=== PATIENT | female | born 1965 | race Caucasian/White ===

== ENCOUNTER 2016-07-12 08:48 | Inpatient (IN) | payer MEDICARE, SELFPAY ==
[~2016-07-12] VITALS: Ht 170.2 cm; Wt 116.8 kg
[~2016-07-12 08:48] MED LIST: CITA20TA9 PO; DIPH50VI12; DIVA500T52 PO; SERAQUIL; SERT100T12; TOPI25 PO
[2016-07-12] MEDS ORDERED: DiphenhydrAMINE HCL 50 MG/ML VIAL IM ONE (09:00)
[2016-07-12] MEDS ORDERED: HALOPERIDOL LACTATE 5 MG/ML VIAL IM ONE (09:00)
[2016-07-12] MEDS ORDERED: LORazepam 2 MG/ML VIAL IM ONE (09:00)
[2016-07-12] MEDS ORDERED: QUET25TA PO (09:06)
[2016-07-12] MEDS ORDERED: GABA-533 PO (09:12)
[2016-07-12] MEDS ORDERED: LITH300C3 PO (09:12)
[2016-07-12] MEDS ORDERED: ARIP15TA3 PO (09:12)
[2016-07-12] MEDS ORDERED: BUPR-93 PO (09:12)
[2016-07-12 09:31] LABS: BASOPHILS % (AUTO) 0.8 % (0.0-2.0); EOSINOPHILS % (AUTO) 3.4 % (1.0-6.0); HEMATOCRIT 43.9 % (36-46); HEMOGLOBIN 14.3 g/dL (12.0-16.0); LYMPHOCYTES # (AUTO) 2.5 K/uL (1.0-4.8); MEAN CORPUSCULAR HEMOGLOBIN 27.9 pg (26.0-34.0); MEAN CORPUSCULAR HGB CONC 32.6 G/dL (31.0-37.0); MEAN CORPUSCULAR VOLUME 86 fL (80-100); MONOCYTES # (AUTO) 0.4 K/uL (0.1-1.0); MONOCYTES % (AUTO) 6.9 % (2.0-9.0); NEUTROPHILS % (AUTO) 48.9 % (40.0-70.0); PLATELET COUNT (AUTO) 327 K/uL (150-450); RED BLOOD CELL COUNT(AUTO) 5.13 MIL/uL (4.00-5.20); RED CELL DISTRIBUTION WIDTH 14.1 % (11.5-14.5); WHITE BLOOD COUNT (AUTO) 6.2 K/uL (4.5-11.0)
[2016-07-12 09:42] LABS: ANION GAP 11 mmol/L (8-16); CALCIUM, TOTAL 8.9 mg/dL (8.8-10.5); CARBON DIOXIDE 26 mmol/L (22-29); CHLORIDE 104 mmol/L (98-107); CREATININE 0.98 mg/dL (0.60-1.30); GLOMERULAR FILTR. RATE CALC 60 mL/min (>60); POTASSIUM 3.7 mmol/L (3.5-5.1); SODIUM SERUM 141 mmol/L (136-145); UREA NITROGEN, BLOOD 12 mg/dL (7-18)
[2016-07-12 09:48] LABS: ALANINE AMINOTRANSFERASE 33 U/L (12-78); ALBUMIN 3.7 g/dL (3.4-5.0); ASPARTATE AMINOTRANSFERASE 23 U/L (15-37); BILIRUBIN,TOTAL 0.4 mg/dL (0.1-1.0); TOTAL PROTEIN, SERUM 7.3 g/dL (6.4-8.2)
[2016-07-12 10:11] LABS: VALPROIC ACID < 3 mcg/mL (50-100)
[2016-07-12] MEDS ORDERED: ZOLPIDEM TARTRATE 10 MG TABLET PO PRN (10:30)
[2016-07-12 10:38] LABS: LITHIUM < 0.20 mmol/L (0.60-1.20)
[2016-07-12 11:43] VITALS: BP 140/99
[2016-07-12] MEDS ORDERED: CloNIDine HCL 0.1 MG TABLET PO PRN (12:15)
[2016-07-12] MEDS ORDERED: ACETAMINOPHEN 325 MG TABLET PO PRN (13:45)
[2016-07-12] MEDS ORDERED: IBUPROFEN 400 MG TABLET PO PRN (13:45)
[2016-07-12] MEDS: NICOTINE 21 MG/24 HOUR PATCH TD SCH (14:07)
[2016-07-12] MEDS: NYSTATIN 30 GM CREAM TP SCH (16:11)
[2016-07-12] MEDS: ARIPiprazole 15 MG TABLET PO SCH (20:01)
[2016-07-13] MEDS: GABAPENTIN 400 MG CAPSULE PO SCH ×3 (09:23→16:06)
[2016-07-13] MEDS: LITHIUM CARBONATE 300 MG CAPSULE PO SCH ×2 (09:23→16:07)
[2016-07-13] MEDS: NICOTINE 21 MG/24 HOUR PATCH TD SCH (09:24)
[2016-07-13] MEDS: BuPROPion HCL XL 150 MG ER TABLET PO SCH (09:24)
[2016-07-13] MEDS: NYSTATIN 30 GM CREAM TP SCH ×2 (09:25→16:06)
[2016-07-13 15:51] LABS: APPEARANCE,URINE CLEAR (CLEAR); GLUCOSE, URINE (UA) NEGATIVE (NEGATIVE); KETONES,URINE NEGATIVE (NEGATIVE); LEUKOCYTE ESTERASE ,URINE NEGATIVE (NEGATIVE); OCCULT BLOOD,URINE NEGATIVE (NEGATIVE); PROTEIN,URINE NEGATIVE (NEGATIVE)
[2016-07-13 15:55] LABS: ADD UA MICROSCOPIC NO
[2016-07-13] MEDS ORDERED: NYST15CR2 TP (16:08)
[2016-07-13] MEDS: ARIPiprazole 15 MG TABLET PO SCH (20:31)
[2016-07-14 05:00] VITALS: BP 136/83
[2016-07-14 08:04] VITALS: BP 133/81
[2016-07-14] MEDS: BuPROPion HCL XL 150 MG ER TABLET PO SCH (08:30)
[2016-07-14] MEDS: LORazepam 2 MG TABLET PO PRN (08:30)
[2016-07-14] MEDS: GABAPENTIN 400 MG CAPSULE PO SCH ×3 (08:30→16:52)
[2016-07-14] MEDS: LITHIUM CARBONATE 300 MG CAPSULE PO SCH ×2 (08:30→16:51)
[2016-07-14] MEDS: NICOTINE 21 MG/24 HOUR PATCH TD SCH (08:31)
[2016-07-14] MEDS: NYSTATIN 30 GM CREAM TP SCH ×2 (08:32→16:52)
[2016-07-14] MEDS: HALOPERIDOL 5 MG TABLET PO PRN (09:57)
[2016-07-14] MEDS ORDERED: MAG HYDROX/AL HYDROX/SIMETH 30 ML SUSP UDCUP PO PRN (14:15)
[2016-07-14 19:42] VITALS: BP 134/82
[2016-07-14] MEDS: ARIPiprazole 15 MG TABLET PO SCH (20:31)
[2016-07-15] MEDS: NYSTATIN 30 GM CREAM TP SCH ×2 (09:00→16:12)
[2016-07-15] MEDS: NICOTINE 21 MG/24 HOUR PATCH TD SCH (09:00)
[2016-07-15] MEDS: LITHIUM CARBONATE 300 MG CAPSULE PO SCH ×2 (09:03→16:12)
[2016-07-15] MEDS: BuPROPion HCL XL 150 MG ER TABLET PO SCH (09:03)
[2016-07-15] MEDS: GABAPENTIN 400 MG CAPSULE PO SCH ×3 (09:03→16:12)
[2016-07-15] MEDS: LORazepam 2 MG TABLET PO PRN (09:04)
[2016-07-15] MEDS: HALOPERIDOL 5 MG TABLET PO PRN (09:04)
[2016-07-15 16:47] VITALS: BP 113/75
[2016-07-15] MEDS: ARIPiprazole 15 MG TABLET PO SCH (20:04)
[2016-07-16] MEDS: LORazepam 2 MG TABLET PO PRN (08:20)
[2016-07-16] MEDS: HALOPERIDOL 5 MG TABLET PO PRN (08:21)
[2016-07-16] MEDS: GABAPENTIN 400 MG CAPSULE PO SCH ×3 (08:21→17:44)
[2016-07-16] MEDS: BuPROPion HCL XL 150 MG ER TABLET PO SCH (08:21)
[2016-07-16] MEDS: LITHIUM CARBONATE 300 MG CAPSULE PO SCH ×2 (08:21→17:44)
[2016-07-16] MEDS: NICOTINE 21 MG/24 HOUR PATCH TD SCH (08:22)
[2016-07-16 08:49] VITALS: BP 128/75
[2016-07-16] MEDS: NYSTATIN 30 GM CREAM TP SCH ×2 (09:00→17:45)
[2016-07-16 17:00] VITALS: BP 114/63
[2016-07-16] MEDS: ARIPiprazole 15 MG TABLET PO SCH (20:01)
[2016-07-17 08:00] VITALS: BP 127/75
[2016-07-17] MEDS: NYSTATIN 30 GM CREAM TP SCH ×2 (09:00→16:03)
[2016-07-17] MEDS: NICOTINE 21 MG/24 HOUR PATCH TD SCH (09:30)
[2016-07-17] MEDS: BuPROPion HCL XL 150 MG ER TABLET PO SCH (09:30)
[2016-07-17] MEDS: GABAPENTIN 400 MG CAPSULE PO SCH ×3 (09:30→16:02)
[2016-07-17] MEDS: LITHIUM CARBONATE 300 MG CAPSULE PO SCH ×2 (09:30→16:02)
[2016-07-17] MEDS: LORazepam 2 MG TABLET PO PRN (12:50)
[2016-07-17 16:54] VITALS: BP 152/96
[2016-07-17] MEDS: ARIPiprazole 15 MG TABLET PO SCH (21:14)
[2016-07-18 08:00] VITALS: BP 140/82
[2016-07-18] MEDS: NICOTINE 21 MG/24 HOUR PATCH TD SCH (09:00)
[2016-07-18] MEDS: NYSTATIN 30 GM CREAM TP SCH ×2 (09:00→16:44)
[2016-07-18] MEDS: LORazepam 2 MG TABLET PO PRN ×2 (09:15→16:44)
[2016-07-18] MEDS: LITHIUM CARBONATE 300 MG CAPSULE PO SCH ×2 (09:15→16:44)
[2016-07-18] MEDS: GABAPENTIN 400 MG CAPSULE PO SCH ×3 (09:15→16:45)
[2016-07-18] MEDS: BuPROPion HCL XL 150 MG ER TABLET PO SCH (09:15)
[2016-07-18] MEDS: HALOPERIDOL 5 MG TABLET PO PRN (09:16)
[2016-07-18 16:45] VITALS: BP 138/70
[2016-07-18] MEDS: ARIPiprazole 15 MG TABLET PO SCH (20:28)
[2016-07-19 08:00] VITALS: BP 134/84
[2016-07-19] MEDS: LITHIUM CARBONATE 300 MG CAPSULE PO SCH (08:59)
[2016-07-19] MEDS: BuPROPion HCL XL 150 MG ER TABLET PO SCH (09:00)
[2016-07-19] MEDS: NICOTINE 21 MG/24 HOUR PATCH TD SCH (09:00)
[2016-07-19] MEDS: NYSTATIN 30 GM CREAM TP SCH (09:00)
[2016-07-19] MEDS: GABAPENTIN 400 MG CAPSULE PO SCH ×2 (09:00→12:36)
[2016-07-19] MEDS: LORazepam 2 MG TABLET PO PRN (09:26)
== END 2016-07-19 14:00 | disposition home or self-care (01) | DRG 885 ==
LOC: EMS 08:50 → 3EC 10:13 → 3EI 07-14 16:00
PROVIDERS: ADMIT Psychiatry & Neurology Psychiatry; ATTEND Psychiatry & Neurology Psychiatry
DX: F20.0 Paranoid schizophrenia (principal); F25.9 Schizoaffective disorder, unspecified; G89.29 Other chronic pain; F15.10 Other stimulant abuse, uncomplicated; F17.210 Nicotine dependence, cigarettes, uncomplicated; F12.10 Cannabis abuse, uncomplicated; Z71.51 Drug abuse counseling and surveillance of drug abuser; Z79.899 Other long term (current) drug therapy
CPT/HCPCS: 80307; 96372; 99285; G0480; J1200; J1630; J2060

== ENCOUNTER 2016-08-18 17:25 | Inpatient (IN) | payer MEDICARE ==
[~2016-08-18] VITALS: Ht 167.6 cm; Wt 107.5 kg
[~2016-08-18 17:25] MED LIST changes: +ARIP15TA3 PO; +BUPR-93 PO; -CITA20TA9 PO; -DIPH50VI12; -DIVA500T52 PO; +GABA-533 PO; +LITH300C3 PO; -SERAQUIL; -SERT100T12; -TOPI25 PO
[2016-08-18 19:35] LABS: BASOPHILS % (AUTO) 0.5 % (0.0-2.0); EOSINOPHILS % (AUTO) 3.2 % (1.0-6.0); HEMATOCRIT 40.5 % (36-46); HEMOGLOBIN 13.2 g/dL (12.0-16.0); LYMPHOCYTES # (AUTO) 1.7 K/uL (1.0-4.8); LYMPHOCYTES % (AUTO) 22.8 % (22.0-44.0); MEAN CORPUSCULAR HEMOGLOBIN 27.4 pg (26.0-34.0); MEAN CORPUSCULAR HGB CONC 32.5 G/dL (31.0-37.0); MEAN CORPUSCULAR VOLUME 84 fL (80-100); MONOCYTES # (AUTO) 0.4 K/uL (0.1-1.0); MONOCYTES % (AUTO) 5.8 % (2.0-9.0); NEUTROPHILS # (AUTO) 5.1 K/uL (1.8-7.7); NEUTROPHILS % (AUTO) 67.7 % (40.0-70.0); PLATELET COUNT (AUTO) 253 K/uL (150-450); RED CELL DISTRIBUTION WIDTH 14.3 % (11.5-14.5); WHITE BLOOD COUNT (AUTO) 7.5 K/uL (4.5-11.0)
[2016-08-18 19:59] LABS: ANION GAP 8 mmol/L (8-16); CALCIUM, TOTAL 9.4 mg/dL (8.8-10.5); CARBON DIOXIDE 27 mmol/L (22-29); CHLORIDE 102 mmol/L (98-107); CREATININE 0.93 mg/dL (0.60-1.30); GLOMERULAR FILTR. RATE CALC > 60 mL/min (>60); POTASSIUM 4.1 mmol/L (3.5-5.1); SODIUM SERUM 137 mmol/L (136-145); UREA NITROGEN, BLOOD 11 mg/dL (7-18)
[2016-08-18 20:05] LABS: ALANINE AMINOTRANSFERASE 37 U/L (12-78); ALBUMIN 3.8 g/dL (3.4-5.0); ASPARTATE AMINOTRANSFERASE 23 U/L (15-37); BILIRUBIN,TOTAL 0.9 mg/dL (0.1-1.0); TOTAL PROTEIN, SERUM 7.5 g/dL (6.4-8.2)
[2016-08-18] MEDS ORDERED: LORazepam 2 MG TABLET PO ONE (21:15)
[2016-08-18] MEDS ORDERED: HALOPERIDOL 5 MG TABLET PO ONE (21:15)
[2016-08-18] MEDS ORDERED: ZOLPIDEM TARTRATE 10 MG TABLET PO PRN (21:30)
[2016-08-19] MEDS ORDERED: ACETAMINOPHEN 325 MG TABLET PO PRN (10:00)
[2016-08-19] MEDS ORDERED: IBUPROFEN 400 MG TABLET PO PRN (10:00)
[2016-08-19] MEDS: GABAPENTIN 400 MG CAPSULE PO SCH ×2 (13:41→16:52)
[2016-08-19] MEDS: HALOPERIDOL 5 MG TABLET PO PRN (16:52)
[2016-08-19] MEDS: LITHIUM CARBONATE 300 MG CAPSULE PO SCH (16:52)
[2016-08-19] MEDS: LORazepam 2 MG TABLET PO PRN (16:52)
[2016-08-19] MEDS: ARIPiprazole 15 MG TABLET PO SCH (21:31)
[2016-08-20 06:10] VITALS: BP 120/93
[2016-08-20] MEDS: LITHIUM CARBONATE 300 MG CAPSULE PO SCH ×2 (09:57→16:41)
[2016-08-20] MEDS: FOLIC ACID 1 MG TABLET PO SCH (09:57)
[2016-08-20] MEDS: GABAPENTIN 400 MG CAPSULE PO SCH ×3 (09:57→16:41)
[2016-08-20] MEDS: THIAMINE HCL 100 MG TABLET PO SCH (09:57)
[2016-08-20] MEDS: BuPROPion HCL XL 150 MG ER TABLET PO SCH (09:58)
[2016-08-20] MEDS: LORazepam 2 MG TABLET PO PRN ×2 (09:58→16:41)
[2016-08-20] MEDS: HALOPERIDOL 5 MG TABLET PO PRN (16:41)
[2016-08-20] MEDS: ARIPiprazole 15 MG TABLET PO SCH (20:14)
[2016-08-21 07:00] VITALS: BP 130/88
[2016-08-21] MEDS: GABAPENTIN 400 MG CAPSULE PO SCH ×2 (08:52→12:33)
[2016-08-21] MEDS: THIAMINE HCL 100 MG TABLET PO SCH (08:52)
[2016-08-21] MEDS: FOLIC ACID 1 MG TABLET PO SCH (08:52)
[2016-08-21] MEDS: BuPROPion HCL XL 150 MG ER TABLET PO SCH (08:52)
[2016-08-21] MEDS: LITHIUM CARBONATE 300 MG CAPSULE PO SCH (08:52)
== END 2016-08-21 16:00 | disposition home or self-care (01) | DRG 885 ==
LOC: EMS 17:28 → B3A 21:12
PROVIDERS: ADMIT Psychiatry & Neurology Psychiatry; ATTEND Psychiatry & Neurology Psychiatry
DX: F25.9 Schizoaffective disorder, unspecified (principal); F31.9 Bipolar disorder, unspecified; G35 Multiple sclerosis; G89.29 Other chronic pain; F17.210 Nicotine dependence, cigarettes, uncomplicated; F99 Mental disorder, not otherwise specified; F19.10 Other psychoactive substance abuse, uncomplicated; F15.10 Other stimulant abuse, uncomplicated; F12.10 Cannabis abuse, uncomplicated; Z71.51 Drug abuse counseling and surveillance of drug abuser; Z59.0 Homelessness; Z71.6 Tobacco abuse counseling; Z79.899 Other long term (current) drug therapy
CPT/HCPCS: 83036; 87081; 99285; G0480

== ENCOUNTER 2020-09-03 11:52 | Emergency (ER) | payer MEDICARE, MEDICAID ==
[~2020-09-03] VITALS: Ht 162.6 cm; Wt 77.3 kg
[2020-09-03] MEDS ORDERED: OLAN10TA3 PO (12:15)
[2020-09-03] MEDS ORDERED: ARIP10TA38 PO (12:15)
[2020-09-03] MEDS ORDERED: QUET100T PO (12:15)
[2020-09-03 13:52] LABS: BASOPHILS % (AUTO) 0.9 % (0.0-2.0); EOSINOPHILS % (AUTO) 3.5 % (1.0-6.0); HEMATOCRIT 41.5 % (36-46); HEMOGLOBIN 13.7 g/dL (12.0-16.0); LYMPHOCYTES # (AUTO) 2.2 K/uL (1.0-4.8); LYMPHOCYTES % (AUTO) 32.1 % (22.0-44.0); MEAN CORPUSCULAR HGB CONC 33.1 G/dL (31.0-37.0); MEAN CORPUSCULAR VOLUME 85 fL (80-100); MONOCYTES # (AUTO) 0.5 K/uL (0.1-1.0); MONOCYTES % (AUTO) 6.9 % (2.0-9.0); NEUTROPHILS % (AUTO) 56.6 % (40.0-70.0); PLATELET COUNT (AUTO) 243 K/uL (150-450); RED BLOOD CELL COUNT(AUTO) 4.91 MIL/uL (4.00-5.20)
[2020-09-03 14:20] LABS: ANION GAP 8 mmol/L (8-16); CALCIUM, TOTAL 9.2 mg/dL (8.8-10.5); CARBON DIOXIDE 29 mmol/L (22-29); CHLORIDE 106 mmol/L (98-107); CREATININE 1.14 mg/dL (0.60-1.30); GLOMERULAR FILTR. RATE CALC 50 mL/min (>60); GLUCOSE,RANDOM 62 mg/dL (70-110); POTASSIUM 4.2 mmol/L (3.5-5.1); SODIUM SERUM 143 mmol/L (136-145); UREA NITROGEN, BLOOD 16 mg/dL (7-18)
[2020-09-03 14:26] LABS: ALANINE AMINOTRANSFERASE 20 U/L (12-78); ALBUMIN 3.6 g/dL (3.4-5.0); ALKALINE PHOSPHATASE 113 U/L (46-116); ASPARTATE AMINOTRANSFERASE 16 U/L (15-37); BILIRUBIN,TOTAL 0.3 mg/dL (0.1-1.0); TOTAL PROTEIN, SERUM 7.2 g/dL (6.4-8.2)
[2020-09-03 14:50] VITALS: BP 144/76
== END 2020-09-03 17:08 | disposition home or self-care (01) ==
LOC: EDUNIT# 11:52 → EMS 12:03
DX: F31.9 Bipolar disorder, unspecified (principal); F17.210 Nicotine dependence, cigarettes, uncomplicated; F11.90 Opioid use, unspecified, uncomplicated; F12.90 Cannabis use, unspecified, uncomplicated; F19.90 Other psychoactive substance use, unspecified, uncomplicated
CPT/HCPCS: 36415; 80053; 85025; 99284; G0480; 82962

== ENCOUNTER 2020-09-08 11:28 | Inpatient (IN) | payer MEDICARE, MEDICAID ==
[~2020-09-08] VITALS: Ht 167.6 cm; Wt 96.9 kg
[2020-09-08 10:45] VITALS: BP 147/95
[~2020-09-08 11:28] MED LIST changes: +ARIP10TA38 PO; -ARIP15TA3 PO; -BUPR-93 PO; -GABA-533 PO; -LITH300C3 PO; +OLAN10TA3 PO; +QUET100T PO
[2020-09-08] MEDS ORDERED: DiphenhydrAMINE HCL 50 MG/ML VIAL IM ONE (12:15)
[2020-09-08] MEDS ORDERED: LORazepam 2 MG/ML VIAL IM ONE (12:15)
[2020-09-08] MEDS ORDERED: HALOPERIDOL LACTATE 5 MG/ML VIAL IM ONE (12:15)
[2020-09-08 13:22] LABS: COVID AG,FIA SOURCE NASOPHARYNGEAL
[2020-09-08] MEDS ORDERED: LORazepam 2 MG TABLET PO PRN (19:15)
[2020-09-08] MEDS ORDERED: HALOPERIDOL 5 MG TABLET PO PRN (19:15)
[2020-09-08] MEDS ORDERED: ZOLPIDEM TARTRATE 10 MG TABLET PO PRN (19:15)
[2020-09-09 01:18] VITALS: BP 132/60
[2020-09-09] MEDS ORDERED: ACETAMINOPHEN 325 MG TABLET PO PRN (07:15)
[2020-09-09] MEDS ORDERED: DOCUSATE SODIUM 100 MG CAPSULE PO PRN (07:15)
[2020-09-09] MEDS ORDERED: LOPERAMIDE HCL 2 MG CAPSULE PO PRN (07:15)
[2020-09-09] MEDS ORDERED: ONDANSETRON HCL 4 MG TABLET PO PRN (07:15)
[2020-09-09] MEDS ORDERED: IBUPROFEN 600 MG TABLET PO PRN (07:15)
[2020-09-09] MEDS ORDERED: ALBUTEROL SULFATE HFA 90 MCG/PUFF 8 GM INHALER IH PRN (07:15)
[2020-09-09] MEDS ORDERED: MAGNESIUM HYDROXIDE SUSPENSION 30 ML UDCUP PO PRN (07:15)
[2020-09-09] MEDS ORDERED: PETROLATUM,WHITE 28 GM JELLY TP PRN (07:15)
[2020-09-09] MEDS ORDERED: BENZOCAINE/MENTHOL LOZENGE PO PRN (07:15)
[2020-09-09] MEDS ORDERED: OMEPRAZOLE 20 MG CAPSULE PO PRN (07:15)
[2020-09-09] MEDS ORDERED: MAG HYDROX/AL HYDROX/SIMETH ES 30 ML SUSPENSION UDCUP PO PRN (07:15)
[2020-09-09] MEDS ORDERED: BACITRACIN 28 GM OINTMENT TP PRN (07:15)
[2020-09-09] MEDS ORDERED: CloNIDine HCL 0.1 MG TABLET PO PRN (07:15)
[2020-09-09] MEDS: AmLODIPine BESYLATE 5 MG TABLET PO SCH (09:08)
[2020-09-09] MEDS: ARIPiprazole 10 MG TABLET PO SCH (10:30)
[2020-09-09] MEDS: QUEtiapine FUMARATE 300 MG TABLET PO SCH (21:52)
[2020-09-10 02:20] VITALS: BP 127/68
[2020-09-10] MEDS: ARIPiprazole 10 MG TABLET PO SCH (09:08)
[2020-09-10] MEDS: AmLODIPine BESYLATE 5 MG TABLET PO SCH (09:08)
[2020-09-10 09:10] VITALS: BP 124/82
[2020-09-10 16:15] VITALS: BP 109/72
[2020-09-10] MEDS: QUEtiapine FUMARATE 300 MG TABLET PO SCH (20:18)
[2020-09-11 00:45] VITALS: BP 114/76
[2020-09-11 08:14] VITALS: BP 121/65
[2020-09-11] MEDS: ARIPiprazole 10 MG TABLET PO SCH (10:12)
[2020-09-11] MEDS: AmLODIPine BESYLATE 5 MG TABLET PO SCH (10:12)
[2020-09-11] MEDS ORDERED: ARIP10TA38 PO (12:44)
[2020-09-11] MEDS ORDERED: QUET300T2 PO (12:44)
[2020-09-11] MEDS ORDERED: AMLO-257 PO (12:44)
== END 2020-09-11 16:00 | disposition home or self-care (01) | DRG 885 ==
LOC: EMS 11:32 → B3A 19:00
PROVIDERS: ADMIT Psychiatry & Neurology Psychiatry; ATTEND Psychiatry & Neurology Psychiatry
DX: F25.9 Schizoaffective disorder, unspecified (principal); F31.9 Bipolar disorder, unspecified; I10 Essential (primary) hypertension; Z20.822 Contact with and (suspected) exposure to COVID-19; F41.9 Anxiety disorder, unspecified; Z87.891 Personal history of nicotine dependence; K59.00 Constipation, unspecified; G47.00 Insomnia, unspecified
CPT/HCPCS: 87426; 99285; J1200; J1630; J2060

== ENCOUNTER 2020-09-09 17:47 | Emergency (ER) | payer MEDICARE, MEDICAID ==
[~2020-09-09] VITALS: Ht 167.6 cm; Wt 100.0 kg
[2020-09-09 17:59] VITALS: BP 102/69
== END 2020-09-09 19:07 | disposition home or self-care (01) ==
LOC: EMS 17:47
DX: S60.444A External constriction of right ring finger, initial encounter (principal); F31.9 Bipolar disorder, unspecified; F17.210 Nicotine dependence, cigarettes, uncomplicated; F11.90 Opioid use, unspecified, uncomplicated; F12.90 Cannabis use, unspecified, uncomplicated; W49.04XA Ring or other jewelry causing external constriction, initial encounter; Y93.89 Activity, other specified; Y92.89 Other specified places as the place of occurrence of the external cause; Y99.8 Other external cause status
CPT/HCPCS: 99284; 99285; Z7502

== ENCOUNTER 2021-12-12 18:55 | Inpatient (IN) | payer MEDICARE, MEDICAID ==
[~2021-12-12] VITALS: Ht 167.6 cm; Wt 89.0 kg
[~2021-12-12 18:55] MED LIST changes: +AMLO-257 PO; -OLAN10TA3 PO; -QUET100T PO; +QUET300T2 PO
[2021-12-12] MEDS ORDERED: ZIPR40CA38 PO (19:39)
[2021-12-12] MEDS ORDERED: OLAN20TA35 PO (19:39)
[2021-12-12] MEDS ORDERED: LITH300C3 PO (19:39)
[2021-12-12] MEDS ORDERED: PROP10TA72 PO (19:39)
[2021-12-12] MEDS ORDERED: GABA-1181 PO (19:39)
[2021-12-12] MEDS ORDERED: ZOLPIDEM TARTRATE 10 MG TABLET PO PRN (20:00)
[2021-12-12] MEDS ORDERED: QUEtiapine FUMARATE 100 MG TABLET PO PRN (20:00)
[2021-12-12] MEDS ORDERED: LORazepam 2 MG TABLET PO PRN (20:00)
[2021-12-12] MEDS ORDERED: HALOPERIDOL LACTATE 5 MG/ML VIAL IM ONE (20:30)
[2021-12-12] MEDS ORDERED: DIAZEPAM 5 MG/ML 2 ML SYRINGE IM ONE (20:30)
[2021-12-12] MEDS ORDERED: DiphenhydrAMINE HCL 50 MG/ML VIAL IM ONE (20:30)
[2021-12-12 21:04] LABS: COVID AG,FIA SOURCE NASOPHARYNGEAL
[2021-12-12 22:37] LABS: BASOPHILS % (AUTO) 0.9 % (0.0-2.0); EOSINOPHILS % (AUTO) 4.7 % (1.0-6.0); HEMATOCRIT 34.9 % (36-46); HEMOGLOBIN 11.7 g/dL (12.0-16.0); LYMPHOCYTES # (AUTO) 1.6 K/uL (1.0-4.8); LYMPHOCYTES % (AUTO) 28.6 % (22.0-44.0); MEAN CORPUSCULAR HEMOGLOBIN 29.1 pg (26.0-34.0); MEAN CORPUSCULAR HGB CONC 33.4 G/dL (31.0-37.0); MEAN CORPUSCULAR VOLUME 87 fL (80-100); MONOCYTES # (AUTO) 0.6 K/uL (0.1-1.0); NEUTROPHILS # (AUTO) 3.2 K/uL (1.8-7.7); NEUTROPHILS % (AUTO) 55.8 % (40.0-70.0); PLATELET COUNT (AUTO) 232 K/uL (150-450); RED BLOOD CELL COUNT(AUTO) 4.01 MIL/uL (4.00-5.20); RED CELL DISTRIBUTION WIDTH 15.2 % (11.5-14.5)
[2021-12-12 22:42] LABS: ANION GAP 6 mmol/L (8-16); CARBON DIOXIDE 27 mmol/L (22-29); CHLORIDE 106 mmol/L (98-107); GLOMERULAR FILTR. RATE CALC 58 mL/min (>60); GLUCOSE,RANDOM 84 mg/dL (70-110); POTASSIUM 3.8 mmol/L (3.5-5.1); SODIUM SERUM 139 mmol/L (136-145)
[2021-12-12 22:57] LABS: ALANINE AMINOTRANSFERASE 24 U/L (12-78); ALBUMIN 3.1 g/dL (3.4-5.0); ALKALINE PHOSPHATASE 72 U/L (46-116); ASPARTATE AMINOTRANSFERASE 19 U/L (15-37); BILIRUBIN,TOTAL 0.6 mg/dL (0.1-1.0); TOTAL PROTEIN, SERUM 6.1 g/dL (6.4-8.2); UREA NITROGEN, BLOOD 23 mg/dL (7-18)
[2021-12-13] MEDS ORDERED: HALOPERIDOL LACTATE 5 MG/ML VIAL IM ONE (10:00)
[2021-12-13] MEDS ORDERED: DiphenhydrAMINE HCL 50 MG/ML VIAL IM ONE (10:00)
[2021-12-13] MEDS ORDERED: DIAZEPAM 5 MG/ML 2 ML SYRINGE IM ONE (10:00)
[2021-12-13 10:47] VITALS: BP 133/88
[2021-12-14 09:53] VITALS: BP 129/90
[2021-12-14 16:33] VITALS: BP 110/64
[2021-12-14 16:34] VITALS: BP 110/64
[2021-12-14] MEDS: DiphenhydrAMINE HCL 25 MG CAPSULE PO SCH (20:58)
[2021-12-14] MEDS: OLANZapine 5 MG RAPDIS TABLET PO SCH (20:59)
[2021-12-15 08:30] VITALS: BP 132/78
[2021-12-15] MEDS: OLANZapine 5 MG RAPDIS TABLET PO SCH ×3 (08:53→20:14)
[2021-12-15] MEDS: DIVALPROEX SODIUM 500 MG DR TABLET PO SCH ×4 (08:53→17:00)
[2021-12-15] MEDS ORDERED: MAGNESIUM HYDROXIDE SUSPENSION 30 ML UDCUP PO PRN (10:30)
[2021-12-15] MEDS ORDERED: ACETAMINOPHEN 325 MG TABLET PO PRN (10:30)
[2021-12-15] MEDS ORDERED: MAG HYDROX/AL HYDROX/SIMETH ES 30 ML SUSPENSION UDCUP PO PRN (10:30)
[2021-12-15] MEDS ORDERED: GuaiFENesin/D-METHORPHAN [SUGAR-FREE] 200-20MG/10 ML SYRUP UDCUP PO PRN (16:45)
[2021-12-15] MEDS ORDERED: PROMETHAZINE HCL 25 MG TABLET PO PRN (16:45)
[2021-12-15] MEDS ORDERED: HydrOXYzine PAMOATE 50 MG CAPSULE PO PRN (16:45)
[2021-12-15] MEDS ORDERED: TUBERCULIN, PURIFIED PROTEIN DERIVATIVE 5 TU/0.1 ML SYRINGE ID ONE (16:45)
[2021-12-15] MEDS ORDERED: LOPERAMIDE HCL 2 MG CAPSULE PO PRN (16:45)
[2021-12-15] MEDS ORDERED: OLANZapine 5 MG RAPDIS TABLET PO PRN (16:45)
[2021-12-15 16:48] VITALS: BP 119/80
[2021-12-15] MEDS: THIAMINE 100 MG TABLET PO SCH ×2 (17:00→18:01)
[2021-12-15] MEDS: DiphenhydrAMINE HCL 25 MG CAPSULE PO SCH (20:14)
[2021-12-16 07:45] LABS: HEMOGLOBIN A1C 4.7 % (3.8-5.6)
[2021-12-16 08:33] VITALS: BP 120/77
[2021-12-16] MEDS: DIVALPROEX SODIUM 500 MG DR TABLET PO SCH ×3 (08:50→16:40)
[2021-12-16] MEDS: OLANZapine 5 MG RAPDIS TABLET PO SCH ×2 (08:50→20:54)
[2021-12-16] MEDS: THIAMINE 100 MG TABLET PO SCH ×2 (09:00→16:40)
[2021-12-16] MEDS: MULTIVITAMINS WITH MINERALS, THERAPEUTIC TABLET PO SCH (09:00)
[2021-12-16] MEDS: FOLIC ACID 1 MG TABLET PO SCH (09:00)
[2021-12-16 16:17] VITALS: BP 119/77
[2021-12-16] MEDS ORDERED: PALIPERIDONE PALMITATE 234 MG/1.5 ML SYRINGE IM ONE (18:00)
[2021-12-16] MEDS: DiphenhydrAMINE HCL 25 MG CAPSULE PO SCH (20:52)
[2021-12-17] MEDS: DIVALPROEX SODIUM 500 MG DR TABLET PO SCH ×3 (09:00→17:26)
[2021-12-17] MEDS: OLANZapine 5 MG RAPDIS TABLET PO SCH ×2 (09:00→20:26)
[2021-12-17] MEDS: MULTIVITAMINS WITH MINERALS, THERAPEUTIC TABLET PO SCH (09:00)
[2021-12-17] MEDS: THIAMINE 100 MG TABLET PO SCH ×2 (09:00→17:29)
[2021-12-17] MEDS: FOLIC ACID 1 MG TABLET PO SCH (09:00)
[2021-12-17 16:00] VITALS: BP 117/77
[2021-12-17] MEDS: DiphenhydrAMINE HCL 25 MG CAPSULE PO SCH (20:26)
[2021-12-18] MEDS: DIVALPROEX SODIUM 500 MG DR TABLET PO SCH ×4 (07:51→16:47)
[2021-12-18] MEDS: FOLIC ACID 1 MG TABLET PO SCH (07:51)
[2021-12-18] MEDS: MULTIVITAMINS WITH MINERALS, THERAPEUTIC TABLET PO SCH (07:51)
[2021-12-18] MEDS: THIAMINE 100 MG TABLET PO SCH ×2 (07:52→16:47)
[2021-12-18] MEDS: OLANZapine 5 MG RAPDIS TABLET PO SCH ×2 (07:53→20:07)
[2021-12-18 16:13] VITALS: BP 141/90
[2021-12-18] MEDS: DiphenhydrAMINE HCL 25 MG CAPSULE PO SCH (20:08)
[2021-12-19 08:05] VITALS: BP 98/62
[2021-12-19] MEDS: THIAMINE 100 MG TABLET PO SCH ×2 (08:36→16:06)
[2021-12-19] MEDS: MULTIVITAMINS WITH MINERALS, THERAPEUTIC TABLET PO SCH (08:36)
[2021-12-19] MEDS: DIVALPROEX SODIUM 500 MG DR TABLET PO SCH ×3 (08:37→16:06)
[2021-12-19] MEDS: FOLIC ACID 1 MG TABLET PO SCH (08:37)
[2021-12-19] MEDS: OLANZapine 5 MG RAPDIS TABLET PO SCH ×2 (08:38→20:05)
[2021-12-19 16:03] VITALS: BP 111/70
[2021-12-19] MEDS: DiphenhydrAMINE HCL 25 MG CAPSULE PO SCH (20:05)
[2021-12-20 08:03] VITALS: BP 107/71
[2021-12-20] MEDS: OLANZapine 5 MG RAPDIS TABLET PO SCH (09:00)
[2021-12-20] MEDS: MULTIVITAMINS WITH MINERALS, THERAPEUTIC TABLET PO SCH (09:00)
[2021-12-20] MEDS: THIAMINE 100 MG TABLET PO SCH (09:00)
[2021-12-20] MEDS: DIVALPROEX SODIUM 500 MG DR TABLET PO SCH (09:00)
[2021-12-20] MEDS ORDERED: PALIPERIDONE PALMITATE 156 MG/ML SYRINGE IM ONE (09:00)
[2021-12-20] MEDS: FOLIC ACID 1 MG TABLET PO SCH (09:00)
[2021-12-20] MEDS ORDERED: OLAN5TAB94 PO (09:49)
[2021-12-20] MEDS ORDERED: DIVA-112 PO (09:49)
[2021-12-20] MEDS ORDERED: MELA5TAB40 PO (09:49)
[2021-12-20] MEDS ORDERED: DIPH25 PO (09:49)
== END 2021-12-20 11:15 | disposition home or self-care (01) | DRG 885 ==
LOC: EMS 19:00 → B3A 12-13 09:35 → 3EC 12-13 11:23
PROVIDERS: ADMIT Psychiatry & Neurology Psychiatry; ATTEND Psychiatry & Neurology Psychiatry
DX: F32.3 Major depressive disorder, single episode, severe with psychotic features (principal); E46 Unspecified protein-calorie malnutrition; Z20.822 Contact with and (suspected) exposure to COVID-19; F17.210 Nicotine dependence, cigarettes, uncomplicated; I10 Essential (primary) hypertension; G35 Multiple sclerosis; D64.9 Anemia, unspecified; Z91.19 Patient's noncompliance with other medical treatment and regimen; Z91.14 Patient's other noncompliance with medication regimen; Z65.3 Problems related to other legal circumstances; Z59.00 Homelessness unspecified; Z55.9 Problems related to education and literacy, unspecified; Z63.8 Other specified problems related to primary support group; Z68.31 Body mass index [BMI] 31.0-31.9, adult
CPT/HCPCS: 80053; 80061; 83036; 85025; 99285; G0480; J1200; J1630